=== PATIENT | male | born 1980 | race Caucasian/White ===

== ENCOUNTER 2023-09-02 08:41 | Observation (INO) | payer OTHER, SELFPAY ==
[2023-09-02] VITALS (13 sets, daily range): BP systolic 102–160; BP diastolic 66–113; PULSE 77–105; RESP 11–18; TEMP 36.3–36.9; O2SAT 95–100; BMI 29.6
--- NOTE | ~2023-09-02 | MR_ITS ---
MRI of the cervical spine Clinical History: Spinal stenosis, seizure Technique: Axial T2-weighted and gradient images, and sagittal T1-weighted, T2-weighted, and STIR marques ges were acquired. Following intravenous administration of 19 cc MultiHance gadolinium, T1-weighted f at-sat imaging was performed in the axial and sagittal planes. Findings: No acute fracture or subluxation of the cervical spine identified. There is anterior interb jose raul fusion from C5 to C6, with associated susceptibility artifact. There is posterior decompression a t C5 and C6 level. No suspicious bone marrow signal abnormality seen. At C2-C3, there is no disc bulge or herniation. No spinal canal stenosis, cord compression, or neural foraminal narrowing. At C3-C4, there is no significant disc bulge or herniation. No gaby spinal canal stenosis, cord comp ression, or neural foraminal narrowing. At C4-C5, there is minimal disc bulge with probable minimal canal stenosis but no gaby cord compress ion. Possible minimal left neural foraminal narrowing. Right neural foramen preserved. At C5-C6, there is susceptibility artifact and posterior decompression. No gaby canal stenosis or co rd compression. Neural foramina are probably preserved. At C6-C7, there is no disc bulge or herniation. No spinal canal stenosis, cord compression, or defini te neural foraminal narrowing. There is hyperintense signal centrally in the spinal cord at the C5-C6 level, possibly sequela of maria isabel or cord compression/myelomalacia. No abnormal postcontrast enhancement identified. There are postoper ative changes in the posterior paravertebral soft tissues at the C5-C6 level region. Impression: Hyperintense cord signal centrally at the C5-C6 level, likely sequela of prior cord compression/myelo malacia. Anterior and interbody fusion with posterior decompression from C5 to C6. Mild degenerative spondylosis otherwise, as above. Reviewed, dictated and finalized at location . CTION PREVENTIONIST Impression: Hyperintense cord signal centrally at the C5-C6 level, likely sequela of prior cord compression/myelomalacia. Anterior and interbody fusion with posterior decompression from C5 to C6. Mild degenerative spondylosis otherwise, as above.
--- NOTE | ~2023-09-02 | MR_ITS ---
MRI of the brain Clinical History: Seizure Technique: Axial and sagittal T1-weighted images were acquired. These were followed by axial T2-weigh russel, diffusion weighted, gradient, and FLAIR images. Coronal T1-weighted and T2-weighted images were performed. Following intravenous administration of 19 cc MultiHance gadolinium, T1-weighted fat-sat i maging was performed in the axial, coronal, and sagittal planes. Findings: No abnormal signal seen in the brain parenchyma. No acute infarct, intracranial hemorrhage, or mass lesion. Ventricles and subarachnoid spaces are unremarkable. Orbits are unremarkable. Paranasal sinuses and m astoid air cells are clear. Major intracranial flow voids are intact. Sagittal midline structures are intact. No definite evidence for mesial temporal sclerosis. No abnormal postcontrast enhancement identified. IMPRESSION: No significant abnormality seen. Reviewed, dictated and finalized at [facility]. RTISING EDITOR
--- NOTE | ~2023-09-02 | XR_ITS ---
EXAMINATION: XR chest 2V DATE: 09/02/2023 09:47 INDICATION: Seizure TECHNIQUE: frontal and lateral views of the chest were obtained. COMPARISON: None FINDINGS: Patient is rotated slightly towards the right on the frontal projection. There is mild elevation of t he left hemidiaphragm. No focal airspace opacities, pulmonary edema, pleural effusion or pneumothorax . The cardiomediastinal silhouette is normal. Lower cervical anterior spinal fusion with partially vi sualized plate and screw fixation. IMPRESSION: 1. Mild elevation of the left hemidiaphragm. No other acute cardiopulmonary disease. Reviewed, dictated and finalized at location A. CAL RECORDS SUPERVISOR IMPRESSION: 1. Mild elevation of the left hemidiaphragm. No other acute cardiopulmonary dis ease.
--- NOTE | ~2023-09-02 | CT_ITS ---
EXAMINATION: CT brain wo con INDICATION: Seizure COMPARISON: None TECHNIQUE: Standard unenhanced head CT. The dose-length product (DLP) was 605.33 mGy-cm. The mA was a djusted according to patient size. Iterative reconstruction technique was employed. FINDINGS: No intracranial hemorrhage, acute infarction, or abnormal mass lesion. The ventricles are n ormal. No abnormal mass effect or midline shift. The tsai-white matter differentiation is normal. The basal cisterns are patent. The orbits are normal. The paranasal sinuses, mastoids and calvarium are normal. IMPRESSION: 1. No acute intracranial abnormality. Reviewed, dictated and finalized at location B. TOLOGIST
--- NOTE | 2023-09-02 08:56 | ECG_ITS ---
Measurements Intervals [place] Rate: 91 P: 43 [place]: 164 QRS: -20 QRSD: 99 T: 52 QT: 345 QTc: 424 Interpretive Statements SINUS RHYTHM ST ELEVATIOIN IN DIFFUSE LEADS- PROBABLY EARLY REPOLARIZATION BORDERLINE ECG NO PREVIOUS ECG AVAILABLE FOR COMPARISON Electronically Signed On 09-02-2023 10:38:27 TESTING PROJECTS ADMINISTRATOR by Diego Hopson D.O.
[2023-09-02 09:24] LABS: Hematocrit 50.2 % (42.0-52.0); Hemoglobin 15.7 g/dL (14.0-18.0); Mean Corpuscular HGB Conc 31.3 g/dl (32-36); Mean Corpuscular Hemoglobin 29.4 pg (26-34); Mean Platelet Volume 10.3 fl (7.4-10.4); Platelet Count Result 265 k/mm3 (150-375); Red Blood Count 5.34 M/mm3 (4.6-6.20); Red Cell Distribution Width 12.1 % (11.5-14.5); White Blood Count 15.7 K/mm3 (4.5-10.0)
[2023-09-02] MEDS: levETIRAcetam 1000MG/NACL100ML 1,000 MG/100 ML BAG 400 MG IVPB ×2 (09:24→17:20)
[2023-09-02 09:39] LABS: Ethanol < 10 mg/dL (<10)
[2023-09-02 09:46] LABS: Albumin Level 4.8 g/dL (3.5-5.1); Alkaline Phosphatase 145 U/L (38-126); Anion Gap 24 mmol/L (8-16); Aspartate Amino Transferase 40 U/L (17-59); Bilirubin,Total 0.5 mg/dL (0.2-1.3); Blood Urea Nitrogen 15 mg/dL (9-20); Calcium 9.5 mg/dL (8.4-10.2); Carbon Dioxide 11 mmol/L (22-30); Chloride 101 mmol/L (98-107); Estimated CRCL calculation 86 ml/min; Estimated Glomerular Filt Rate > 60; Glucose 171 mg/dL (65-110); Potassium 4.6 mmol/L (3.4-5.0); Sodium 136 mmol/L (137-145)
[2023-09-02 10:02] LABS: Band Neutrophils Percent 9 % (0-6); Eosinophils Absolute Manual 0.31 K/mm3 (0.02-0.5); Eosinophils Percent Manual 2 % (0-4); Large Platelets Present; Lymphocytes Absolute Manual 5.02 K/mm3 (1.1-4.5); Lymphocytes Percent Manual 32 % (18-44); Monocytes Absolute Manual 0.47 K/mm3 (0.1-0.90); Monocytes Percent Manual 3 % (3-9); Neutrophils Absolute Manual 9.89 K/mm3 (1.3-6.7); Neutrophils Percent Manual 54 % (46-73); Platelet Estimate Adequate (Adequate); Total Cells Counted 100
[2023-09-02 10:03] LABS: Schistocytes None Seen (NORMAL)
[2023-09-02 10:23] LABS: Alanine Aminotransferase 42 U/L (6-50)
--- NOTE | 2023-09-02 10:46 | ED.GENADULT ---
HPI - General Adult General Chief complaint: Seizure Stated complaint: seizure x 10 minutes Time Seen by Provider: 09/02/23 08:45 History of Present Illness HPI narrative: Patient is a 43-year-old male who presents ER after having a seizure. Witnessed by in bed. Arms were flexed and its reported lasted 10 minutes. Patient has history of seizure disorder when he was a child but grew out of them and has not been on antiepileptics. Patient does have some known clonus in his extremities that occurs in the morning when he stretches. It is results of the spinal fusion he has had in the past. He has been seen by a neurologist at [facility] for the clonus. Patient reports he did use marijuana last night which is typical for him. No fevers or chills or sweats. She was initially postictal but is alert and oriented x3 here. After evaluation patient had a recurrent seizure and bit his tongue. He was briefly postictal. Related Data Home Medications Medication Instructions Recorded Confirmed baclofen 5 mg tablet 5 mg PO TID 09/02/23 09/02/23 buspirone 30 mg tablet 30 mg PO BID 09/02/23 09/02/23 calcium carbonate 500 mg calcium 500 mg PO BID 09/02/23 09/02/23 (1,250 mg) tablet cetirizine 10 mg tablet 10 mg PO DAILY 09/02/23 09/02/23 cholecalciferol (vitamin D3) 50 50 mcg PO DAILY 09/02/23 09/02/23 mcg (2,000 unit) capsule (Vitamin D3) desvenlafaxine succinate 50 mg 50 mg PO DAILY 09/02/23 09/02/23 tablet,extended release 24 hr dulaglutide 0.75 mg/0.5 mL 0.75 mg subcut WEEKLY 09/02/23 09/02/23 subcutaneous pen injector (Trulicity) gabapentin 300 mg capsule 300 mg PO TID 09/02/23 09/02/23 lamotrigine 25 mg tablet 50 mg PO DAILY 09/02/23 09/02/23 melatonin 10 mg tablet,extended 10 mg PO HS 09/02/23 09/02/23 release metformin 1,000 mg tablet 1,000 mg PO BID 09/02/23 09/02/23 Allergies Allergy/AdvReac Type Severity Reaction Status Date / Time No Known Allergies Allergy Verified 08/04/23 13:24 Review of Systems Review of Systems: All systems reviewed & are unremarkable except as noted in HPI and below Constitutional: Constitutional: Denies chills, Denies fatigue and Denies fever(s) ENT: Denies nasal congestion and Denies sore throat Cardiovascular: Cardiovascular: Denies chest pain, Denies rapid heart rate and Denies radiating jaw, neck or arm pain Respiratory: Respiratory: Denies cough and Denies dyspnea Gastrointestinal: Gastrointestinal: Denies abdominal pain, Denies nausea and Denies vomiting PMFSH Past Medical History Medical History (Updated 09/02/23 @ 17:44 by Everardo Torres MD) Cervical stenosis of spinal canal Depression Diabetes type 2, controlled Encounter for medication management GILL (generalized anxiety disorder) Inflammatory arthritis Seizure in childhood 5-6 y/o, had 1 grand mal and 2 additional. unclear when resolved. Surgical History Surgical History (Updated 09/02/23 @ 10:51 by Everardo Torres MD) H/O cervical spine surgery Social History Social History Smoking status: Former smoker Tobacco type: cigarettes Alcohol intake: current Drinks per week: 1 Substance use: current Substance use type: marijuana Lack of Transportation: No Lack of Food: Never True Current Housing: I Have Housing Concerned About Future Housing: No Difficulty Paying Gas/Electric Bills: No Difficulty Paying for Meds: No Currently Unemployed: No Education: Decline to Answer Difficulty w/ Childcare or Family Care: No Spiritual care concerns: Yes (orthodoxy) Exam Narrative: GENERAL: Well-appearing, well-nourished, and in no acute distress. HEAD: Normocephalic, atraumatic. EYES: PERRL and EOMI. contusion right eye ENT: Mucous membranes moist. Bleeding from right corner mouth. CHEST: Clear to auscultation. No respiratory distress. HEART: Regular rate and rhythm. Normal peripheral pulses. ABDOMEN: Soft, n
--- NOTE | 2023-09-02 12:14 | ADMGEN ---
This patient, Genaro Dominique, was admitted to 3 [facility] Surg Room 316-01. Patient/family oriented to hospital policies and general routines including ID bracelet, bed and alarms, visiting hours, pain management, procedures, bathroom and other care routines, personal items, smoking policy, room service/diet, and visiting hours. Information on how to activate the Rapid Response Team has been discussed. Patient/Family are encouraged to report perceived risks to care and to ask questions if they do not understand what they are told or what they should do.
[2023-09-02] MEDS: HYDROcodone/acetaminophen (*CRX) 5-325 MG TABLET 1 TAB PO (12:53)
--- NOTE | 2023-09-02 13:55 | PM.IMHP ---
H&P: HPI History of Present Illness Date/Time: 09/02/23 13:55 Chief Complaint: New Seizure-like Activity Narrative: 43 y/o M presents here with new seizure-like activity with PMH of DM2, juvenile seizures, cervical stenosis with subsequent surgery, inflammatory arthritis, GILL, depression, and ADHD. HPI provided by , patient remains somnolent. states that she was getting ready around 8:00 a.m. when she noticed that the patient seemed stiff and arms were flexed out. Initially believed flexion due to clonus. She attempted to help patient stretch out and really awaken arms and legs. This did not alleviate the flexion and patient became more sweaty/clammy. Then arms moved from flexion outward to drawn up into his chest and then he began to shake. called 911. Initial seizure lasted approximately 10 minutes and broke without intervention. When EMS arrived patient was agitated and it took multiple emergency route service manager now to get him onto the transport stretcher. While patient was in route to the hospital with EMS he had a 2nd seizure. Limited information about length of time and if interventions were provided. reports that patient arrived to the hospital with bruise over his right eye which was not present prior to transport. After arrival to the emergency department patient returned to baseline. While in the ED he had a 3rd seizure with some trauma to his tongue. 1 g of Keppra given. Patient remains somnolent after 3rd seizure but is A&Ox4. Current complaint is frontal headache. Patient has history of juvenile seizures, 1st occurred when he was 7 to 8 years old. Initial seizure was a grand mal seizure, 2 more shortly thereafter. Medicated for an unknown amount of time and medication name unknown. Patient was taken off of seizure medications and has not had issues since. States he grew out of them. Only other history is chronic clonus in all extremities. reports that this is been present since before his cervical spine surgery to correct spinal stenosis in April, however after surgery was done the clonus worsened. Following with surgeon, last seen in June. Endorses marijuana use regularly/daily. No other recreational drugs or daily alcohol use, reports that he only drinks occasionally. Review of Systems Review of Systems: All systems reviewed & are unremarkable except as noted in HPI and below [facility] Past Medical History Medical History ADHD Cervical stenosis of spinal canal Depression Diabetes type 2, controlled GILL (generalized anxiety disorder) Inflammatory arthritis Seizure in childhood 5-6 y/o, had 1 grand mal and 2 additional. unclear when resolved. Surgical History Surgical History H/O cervical spine surgery Social History Social History Social History: Currently lives at home with his . Surrogate decision maker: Radha Hernandez, spouse. Code status: Full code. Smoking status: Former smoker Tobacco type: cigarettes Alcohol intake: current Drinks per week: 1 Substance use: current Substance use type: marijuana Lack of Transportation: No Lack of Food: Never True Current Housing: I Have Housing Concerned About Future Housing: No Difficulty Paying Gas/Electric Bills: No Difficulty Paying for Meds: No Currently Unemployed: No Education: Decline to Answer Difficulty w/ Childcare or Family Care: No Spiritual care concerns: Yes (spiritism) Meds Home Medications and Allergies Home Medications Medication Instructions Recorded Confirmed Type baclofen 5 mg tablet 5 mg PO TID 09/02/23 09/02/23 History buspirone 30 mg tablet 30 mg PO BID 09/02/23 09/02/23 History calcium carbonate 500 mg calcium 500 mg PO BID 09/02/23 09/02/23 History (1,250 mg) tablet cetirizine 10
[2023-09-02 14:41] LABS: Appearance Urine Clear (Clear); Bilirubin Urine Negative (Negative); Blood Urine Negative (Negative); Color Urine Yellow (Yellow); Glucose Urine UA Trace mg/dL (Negative); Ketones Urine Trace mg/dL (Negative); Leukocyte Esterase Ur Negative LEU/UL (Negative); Nitrate Urine Negative (Negative); Protein Urine Negative (Negative); Specific Grav Ur 1.015 (1.001-1.035); Urobilinogen Urine 0.2 mg/dL (<2.0); pH Urine 6.5 (5.0-9.0)
[2023-09-02 14:47] LABS: Add Urine Microscopic? NO
[2023-09-02 14:56] LABS: Amphetamine Screen Urine Negative (Negative); Barbiturate Screen Urine Negative (Negative); Benzodiazepines Screen Urine Negative (Negative); Cannabinoid Screen Urine Positive (Negative); Cocaine Screen Urine Negative (Negative); Methadone Screen Urine Negative (Negative); Opiate Screen Urine Negative (Negative); Phencyclidine Screen Urine Negative (Negative)
[2023-09-02 16:56] LABS: Free T4 Free Thyroxine Reflex 1.04 ng/dL (0.78-2.19)
[2023-09-02] MEDS: LACTATED RINGERS 1,000 ML 100 ML IV CONT (17:19)
[2023-09-02 17:25] LABS: Glucose Point of Care 85 mg/dl (65-105)
[2023-09-02] MEDS: CALCIUM CARBONATE (OSCAL) 500 MG TABLET PO (17:26)
[2023-09-02] MEDS: busPIRone HCL 10 MG TABLET 30 MG PO (17:26)
[2023-09-02] MEDS: GABAPENTIN 300 MG CAPSULE PO (17:26)
[2023-09-02] MEDS: BACLOFEN 5 MG TABLET PO (17:26)
[2023-09-02] MEDS: ONDANSETRON INJ 4 MG/2 ML VIAL IV PUSH (17:35)
[2023-09-02 17:56] LABS: Total Triiodothyronine (T3) 1.42 NG/ML (0.97-1.69)
[2023-09-02 21:01] LABS: Glucose Point of Care 89 mg/dl (65-105)
[2023-09-03] VITALS (10 sets, daily range): BP systolic 114–121; BP diastolic 71–82; PULSE 61–88; RESP 16–20; TEMP 36.1–36.8; O2SAT 96–99
[2023-09-03 05:59] LABS: Hematocrit 47.4 % (42.0-52.0); Hemoglobin 15.7 g/dL (14.0-18.0); Mean Corpuscular HGB Conc 33.1 g/dl (32-36); Mean Corpuscular Hemoglobin 29.7 pg (26-34); Mean Corpuscular Volume 89.6 fl (80-100); Mean Platelet Volume 10.4 fl (7.4-10.4); Platelet Count Result 207 k/mm3 (150-375); Red Blood Count 5.29 M/mm3 (4.6-6.20)
[2023-09-03 06:15] LABS: Anion Gap 9 mmol/L (8-16); Blood Urea Nitrogen 13 mg/dL (9-20); Calcium 10.2 mg/dL (8.4-10.2); Carbon Dioxide 29 mmol/L (22-30); Chloride 99 mmol/L (98-107); Estimated CRCL calculation 86 ml/min; Estimated Glomerular Filt Rate > 60; Glucose 85 mg/dL (65-110); Potassium 4.1 mmol/L (3.4-5.0); Sodium 137 mmol/L (137-145)
[2023-09-03 06:20] LABS: Hemoglobin A1C 5.5 % (<5.7)
[2023-09-03 07:47] LABS: Glucose Point of Care 93 mg/dl (65-105)
[2023-09-03] MEDS: DESVENLAFAXINE SUCCINATE 50 MG TAB.ER.24H PO (09:16)
[2023-09-03] MEDS: busPIRone HCL 10 MG TABLET 30 MG PO ×2 (09:16→16:47)
[2023-09-03] MEDS: GABAPENTIN 300 MG CAPSULE PO ×3 (09:17→16:47)
[2023-09-03] MEDS: CALCIUM CARBONATE (OSCAL) 500 MG TABLET PO ×2 (09:17→16:47)
[2023-09-03] MEDS: levETIRAcetam 500 MG TABLET PO ×2 (09:17→22:05)
[2023-09-03] MEDS: BACLOFEN 5 MG TABLET PO ×3 (09:17→16:47)
[2023-09-03] MEDS: CHOLECALCIFEROL 1,000 UNITS TABLET 2000 UNITS PO (09:17)
[2023-09-03] MEDS: lamoTRIgine 50 MG TABLET PO (09:17)
[2023-09-03 11:33] LABS: Glucose Point of Care 128 mg/dl (65-105)
--- NOTE | 2023-09-03 11:50 | WPDNEURCNPN ---
Assessment and Plan Assessment and plan (1) Seizure-like activity: Code(s): R56.9 - Unspecified convulsions Status: Acute (2) Epilepsy: Code(s): G40.909 - Epilepsy, unspecified, not intractable, without status epilepticus Status: Acute Plan Mr. Dominique is a 43 year old male with a history of cervical stenosis and remote history of seizures presenting due to several seizures within one day. UDS was positive for marijuana, which patient has been smoking for quite some time. Seizures seem to be unprovoked. MRI brain was normal. EEG is pending. Given seizures during childhood, and now seemingly unprovoked seizures, we discussed that he should be on maintenance anti seizure medication. We also discussed no driving or operating heavy machinery until he is seizure free for at least six months. Reviewed seizure precautions. Continue Keppra 500mg BID. Will follow-up as outpatient. Consult date: 09/03/23 Reason for consult: Seizure HPI: Genaro Dominique is a 43 year old male with cervical stenosis s/p fusion, childhood seizures, ADHD, anxiety, depression, DM presenting due to breakthrough seizures. Patient had witnessed seizure on day of admission that was described as tonic clonic movements of the extremities, lasting about 10 minutes and self-aborted followed by post-ictal state. EMS was called, patient had another seizure en route. He arrived to the ED post-ictal but had a third seizure while in the ED. He was given 1 gram of Keppra and started on maintenance Keppra 500mg BID. Since then he has not had any additional seizures but has been quite tired. feels that his clonus has gotten worse since the seizure. CT head was negative for acute process. MRI brain was normal. UDS was positive for marijuana. Patient had 2-3 seizures in childhood. It is unknown if there was associated fever or if he ever took anti-seizure medication. Neither patient nor his mother remember. There is no known family history of seizures. 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 He had fusion/decompression of C-spine in April 2023. Review of Systems Constitutional: Constitutional: Denies chills, Denies fever(s) and Denies weight loss Eyes: Eyes: Denies diplopia and Denies loss of vision ENT: Denies dizziness, Denies hearing loss and Denies tinnitus Cardiovascular: Cardiovascular: Denies chest pain, Denies syncope and Denies dyspnea Respiratory: Respiratory: Denies cough, Denies dyspnea and Denies wheezing Gastrointestinal: Gastrointestinal: Denies abdominal pain, Denies change in bowel habits and Denies vomiting Genitourinary: Genitourinary: Denies urinary incontinence Musculoskeletal: Musculoskeletal: Reports back pain, Denies arthralgias and Denies joint swelling Integumentary/Breasts: Skin/Breast: Denies new lesions and Denies rash Neurologic: Reports as per HPI, Denies dizziness, Denies syncope and Denies loss of vision Psychiatric: Psychiatric: Denies anxiety and Denies depression Endocrine: Endocrine: Denies cold intolerance and Denies heat intolerance Hematologic/Lymphatic: Hematologic/Lymphatic: Denies easy bleeding and Denies easy bruising Allergic/Immunologic: Allergic/Immunologic: Denies no additional allergic/immunologic complaints and Denies wheezing PMFSH Past Medical History Medical History ADHD Cervical stenosis of spinal canal Depression Diabetes type 2, controlled GILL (generalized anxiety disorder) Inflammatory arthritis Seizure in childhood 5-6 y/o, had 1 grand mal and 2 additional. unclear when resolved. Surgical History Surgical History H/O cervical spine surgery Social History Social History Social History: Currently lives at home with his . Surrogate decision maker: Radha David, spouse. Code status: Full code. Smoking status: Former
--- NOTE | 2023-09-03 13:48 | PM.IMPN ---
Progress Note: A&P Assessment and Plan (1) Seizure-like activity: Code(s): R56.9 - Unspecified convulsions Status: Acute (2) Diabetes type 2, controlled: Qualifiers: Diabetes mellitus complication status: without complication Diabetes mellitus detention insulin use: without service greeter use Qualified Code(s): E11.9 - Type 2 diabetes mellitus without complications Code(s): E11.9 - Type 2 diabetes mellitus without complications Status: Acute (3) Cervical stenosis of spinal canal: Code(s): M48.02 - Spinal stenosis, cervical region Status: Acute Plan Problem List 1. seizure-like activity Keppra loading dose of 2G IVPB, continue Keppra 500 mg PO BID seizure precautions MRI of brain/brainstem - negative for acute changes MRI cervical spine - showed some possible sequelae from cervical surgery EEG - pending report UA: trace glucose, trace ketones UDS - marijuana TSH 5.670, T4 WNL no new medication recently, no regular/heavy ETOH use no s/s of infection or lab/imaging findings to support same consult neurology - awaiting further recommendation/evaluation 1 mg of Ativan IV prn for seizure-like activity lamictal level d/c IVF mild associated QUIROS - TYL prn 2. DM2 Hypoglycemia protocol POC blood glucose ACHS home medication held - metformin correct regimen ordered - low dose TIDWM and HS A1C ordered dexcom in place 3. cervical stenosis of spinal canal continue home baclofen, gabapentin cervical MRI showed Hyperintense cord signal centrally at the C5-C6 level, likely sequela of prior cord compression/myelomalacia. Anterior and interbody fusion with posterior decompression from C5 to C6. Mild degenerative spondylosis otherwise, as above. Home Meds/Chronic Conditions - GILL/Depression: continue home buspar, pristiq, - supplements: continue calcium, vitamin D3, and melatonin Diet: heart healthy GI Prophylaxis: not indicated DVT Prophylaxis: SCDs, Lines: pIV Code Status: Full Code Subjective Date/time seen: 09/03/23 13:48 Interval history: Patient is a 43 y/o male admitted with new seizure-like activity with PMH of DM2, juvenile seizures, cervical stenosis with subsequent surgery, inflammatory arthritis, GILL, depression, and ADHD. He is post 3 tonic-like seizures yesterday. His night here was uneventful. He is sitting up in bed with at bedside. We reviewed his medications, any changes in his daily life, dosages or recreational habits. The only thing the can think of is that they moved into an older home a few months ago and the carpets were cleaned a few days prior to this starting. She reports his blood sugars have been tightly controlled at home, with the exception of a few temporary lows but not going below 75. He is not complaining of any headache this morning, n/v or changes overnight. Awaiting neurology recommendations for evaluation. Review of Systems Review of Systems: All systems reviewed & are unremarkable except as noted in HPI and below Exam Const: General: comfortable and no acute distress HENMT: Mouth: Yes dry mucous membranes Other: Trauma to right lateral tongue, no active bleeding. Eyes: General: appearance normal, both eyes and all related structures Sclera: sclerae normal Pupils: Equal, round and reactive pupils present Other: 3-4 mm bilaterally, no nystagmus, no abnormalities in cardinal directions. Resp: Effort & Inspection: normal respiratory effort Auscultation: clear to auscultation bilaterally Cardio: Rate: regular rate Rhythm: regular rhythm Other: S1-S2 present without murmur, rub, ectopy GI: Auscultation: normal bowel sounds Skin: General skin exam: normal color and no rashes or lesions noted Wounds: no wounds Other: Small area of ecchymosis to right eye/right eyebrow with mild underlying swelling. Neuro: General: deep tendon reflexes 2+ bilaterally Cranial nerves: Yes Eq
--- NOTE | 2023-09-03 13:48 | P.PNIM_ITS ---
Progress Note: A&P Assessment and Plan (1) Seizure-like activity: Code(s): R56.9 - Unspecified convulsions Status: Acute (2) Diabetes type 2, controlled: Qualifiers: Diabetes mellitus complication status: without complication Diabetes mellitus fdc insulin use: without terminal superintendent use Qualified Code(s): E11.9 - Type 2 diabetes mellitus without complications Code(s): E11.9 - Type 2 diabetes mellitus without complications Status: Acute (3) Cervical stenosis of spinal canal: Code(s): M48.02 - Spinal stenosis, cervical region Status: Acute Plan Problem List 1. seizure-like activity * Keppra loading dose of 2G IVPB, continue Keppra 500 mg PO BID * seizure precautions * MRI of brain/brainstem - negative for acute changes * MRI cervical spine - showed some possible sequelae from cervical surgery * EEG - pending report * UA: trace glucose, trace ketones * UDS - marijuana * TSH 5.670, T4 WNL * no new medication recently, no regular/heavy ETOH use * no s/s of infection or lab/imaging findings to support same * consult neurology - awaiting further recommendation/evaluation * 1 mg of Ativan IV prn for seizure-like activity * lamictal level * d/c IVF * mild associated QUIROS - TYL prn 2. DM2 * Hypoglycemia protocol * POC blood glucose ACHS * home medication held - metformin * correct regimen ordered - low dose TIDWM and HS * A1C ordered * dexcom in place 3. cervical stenosis of spinal canal * continue home baclofen, gabapentin * cervical MRI showed Hyperintense cord signal centrally at the C5-C6 level, likely sequela of prior cord compression/myelomalacia. Anterior and interbody fusion with posterior decompression from C5 to C6. Mild degenerative spondylosis otherwise, as above. Home Meds/Chronic Conditions - GILL/Depression: continue home buspar, pristiq, - supplements: continue calcium, vitamin D3, and melatonin Diet: heart healthy GI Prophylaxis: not indicated DVT Prophylaxis: SCDs, Lines: pIV Code Status: Full Code Subjective Date/time seen: 09/03/23 13:48 Interval history: Patient is a 43 y/o male admitted with new seizure-like activity with PMH of DM2, juvenile seizures, cervical stenosis with subsequent surgery, inflammatory arthritis, GILL, depression, and ADHD. He is post 3 tonic-like seizures yesterday. His night here was uneventful. He is sitting up in bed with at bedside. We reviewed his medications, any changes in his daily life, dosages or recreational habits. The only thing the can think of is that they moved into an older home a few months ago and the carpets were cleaned a few days prior to this starting. She reports his blood sugars have been tightly controlled at home, with the exception of a few temporary lows but not going below 75. He is not complaining of any headache this morning, n/v or changes overnight. Awaiting neurology recommendations for evaluation. Review of Systems Review of Systems: All systems reviewed & are unremarkable except as noted in HPI and below Exam Const: General: comfortable and no acute distress HENMT: Mouth: Yes dry mucous membranes Other: Trauma to right lateral tongue, no active bleeding. Eyes: General: appearance normal, both eyes and all related structures Sclera: sclerae normal Pupils: Equal, round and reactive pupils present Other: 3-4 mm bilaterally, no nystagmus, no abn ormalities in cardinal directions.
[2023-09-03 16:43] LABS: Glucose Point of Care 100 mg/dl (65-105)
[2023-09-03 21:02] LABS: Glucose Point of Care 118 mg/dl (65-105)
[2023-09-03] MEDS: MELATONIN 5 MG TABLET 10 MG PO (22:05)
[2023-09-04] VITALS: PULSE 97
[2023-09-04 04:00] VITALS: PULSE 84
[2023-09-04 07:21] LABS: Hemoglobin 16.6 g/dL (14.0-18.0); Mean Corpuscular HGB Conc 33.9 g/dl (32-36); Mean Corpuscular Hemoglobin 29.8 pg (26-34); Mean Platelet Volume 9.8 fl (7.4-10.4); Platelet Count Result 230 k/mm3 (150-375); Red Blood Count 5.57 M/mm3 (4.6-6.20); Red Cell Distribution Width 11.9 % (11.5-14.5); White Blood Count 9.8 K/mm3 (4.5-10.0)
[2023-09-04 07:31] LABS: Anion Gap 13 mmol/L (8-16); Blood Urea Nitrogen 15 mg/dL (9-20); Calcium 10.3 mg/dL (8.4-10.2); Carbon Dioxide 26 mmol/L (22-30); Chloride 99 mmol/L (98-107); Estimated CRCL calculation 86 ml/min; Estimated Glomerular Filt Rate > 60; Glucose 136 mg/dL (65-110); Potassium 4.1 mmol/L (3.4-5.0); Sodium 138 mmol/L (137-145)
[2023-09-04 08:00] VITALS: PULSE 82
[2023-09-04 08:42] LABS: Glucose Point of Care 134 mg/dl (65-105)
[2023-09-04] MEDS: CALCIUM CARBONATE (OSCAL) 500 MG TABLET PO (09:45)
[2023-09-04] MEDS: GABAPENTIN 300 MG CAPSULE PO (09:45)
[2023-09-04] MEDS: CHOLECALCIFEROL 1,000 UNITS TABLET 2000 UNITS PO (09:45)
[2023-09-04] MEDS: busPIRone HCL 10 MG TABLET 30 MG PO (09:45)
[2023-09-04] MEDS: DESVENLAFAXINE SUCCINATE 50 MG TAB.ER.24H PO (09:45)
[2023-09-04] MEDS: levETIRAcetam 500 MG TABLET PO (09:45)
[2023-09-04] MEDS: BACLOFEN 5 MG TABLET PO ×2 (09:46→12:52)
[2023-09-04] MEDS: lamoTRIgine 50 MG TABLET PO (09:46)
--- NOTE | 2023-09-04 10:31 | WPDNEUROLOGY ---
Neurology EEG Report General Information Date of Study: 09/03/23 TEST Routine EEG DIAGNOSIS Seizures CONDITION OF RECORDING Awake, drowsy, asleep EEG NUMBER [id number] CLINICAL HISTORY Patient has a history of seizures during childhood. Remained seizure free as an adult until a few days ago -- had several convulsive seizures which brought him to the hospital. EEG DESCRIPTION 8During the awake state with eyes closed the background consists of 8-9 Hz posterior dominant rhythm which attenuates appropriately with eye opening. The recording is continuous. There is a well developed anterior-posterior gradient. No significant asymmetries of background activities are noted. With drowsiness there is waxing and waning of the dominant rhythm with eventual replacement by a mixture of beta, alpha, and theta activity. As the patient enters stage II sleep, symmetrical spindles and K-complexes are present. Arousal is unremarkable. There are no epileptiform discharges or seizures during this recording. Hyperventilation and photic stimulation were not performed. IMPRESSION This is a normal routine EEG recorded in awake and asleep states. There are no electrographic seizures identified, nor are there any epileptiform discharges. Please note that a normal EEG cannot exclude a seizure disorder. Clinical correlation is recommended.
[2023-09-04 12:00] VITALS: PULSE 87
[2023-09-04 12:14] LABS: Glucose Point of Care 126 mg/dl (65-105)
[2023-09-04] MEDS: ONDANSETRON INJ 4 MG/2 ML VIAL IV PUSH (12:53)
[2023-09-04] MEDS: GABAPENTIN 300 MG CAPSULE 900 MG PO (12:53)
--- NOTE | 2023-09-04 13:38 | PC.NURSE ---
1338 d/c meds not complete, made call to force variation equipment tender Dr Khan to inform her.
--- NOTE | 2023-09-04 13:55 | PM.DS ---
DS: Admitting Diagnosis Discharge Date 09/04/23 Admitting Diagnosis seizure-like activity DS: Discharge Diagnosis Discharge Diagnosis (1) Seizure-like activity: Code(s): R56.9 - Unspecified convulsions Status: Acute (2) Diabetes type 2, controlled: Qualifiers: Diabetes mellitus complication status: without complication Diabetes mellitus terminal make up operator insulin use: without long-term use Qualified Code(s): E11.9 - Type 2 diabetes mellitus without complications Code(s): E11.9 - Type 2 diabetes mellitus without complications Status: Acute (3) Cervical stenosis of spinal canal: Code(s): M48.02 - Spinal stenosis, cervical region Status: Acute Plan Problem List 1. seizure-like activity continue Keppra 500 mg PO BID seizure precautions at home discussed MRI of brain/brainstem - negative for acute changes MRI cervical spine - showed some possible sequelae from cervical surgery EEG - WNL UA: trace glucose, trace ketones UDS - marijuana TSH 5.670, T4 WNL Follow up outpatient with neurology 2. DM2 continue home metformin 3. cervical stenosis of spinal canal continue home baclofen, gabapentin cervical MRI showed Hyperintense cord signal centrally at the C5-C6 level, likely sequela of prior cord compression/myelomalacia. Anterior and interbody fusion with posterior decompression from C5 to C6. Mild degenerative spondylosis otherwise, as above. continue to follow with surgeon DS: Summary Hospital Course Hospital Course: Patient is a 43 y/o male admitted with new seizure-like activity with PMH of DM2, juvenile seizures, cervical stenosis with subsequent surgery, inflammatory arthritis, GILL, depression, and ADHD. He is post 3 tonic-like seizures Thursday with no new seizures while inpatient. He has no complaints this morning, no changes in his condition and is stable for discharge. MRI of brain/brainstem - negative for acute changes. MRI cervical spine - showed some possible sequelae from cervical surgery. EEG was normal. Neuro cleared for outpatient follow up. He will continue Keppra 500 mg BID. Discussed seizure precautions at home. Stable for d/c home today with his . Status at Discharge Functional status at discharge: independent ambulation Overall status at discharge: patient is back to baseline Time Spent with Patient Time attestation: Total time spent providing and/or coordinating discharge services: Exam Const: General: comfortable and no acute distress HENMT: Mouth: Yes dry mucous membranes Other: Trauma to right lateral tongue, no active bleeding. Eyes: General: appearance normal, both eyes and all related structures Sclera: sclerae normal Pupils: Equal, round and reactive pupils present Other: 3-4 mm bilaterally, no nystagmus, no abnormalities in cardinal directions. Resp: Effort & Inspection: normal respiratory effort Auscultation: clear to auscultation bilaterally Cardio: Rate: regular rate Rhythm: regular rhythm Other: S1-S2 present without murmur, rub, ectopy GI: Auscultation: normal bowel sounds Skin: General skin exam: normal color and no rashes or lesions noted Wounds: no wounds Other: Small area of ecchymosis to right eye/right eyebrow with mild underlying swelling. Neuro: General: deep tendon reflexes 2+ bilaterally Cranial nerves: Yes Equal, round and reactive pupils present Speech: normal speech Sensory Exam: normal sensation Other: +4/5 in BUE. +5 in BLE. no changes in sensation. somnolent. PERRLA: 2-3mm w/o nystagmus. Extrem: General: normal to inspection Psych: Mental Status: mental status grossly normal DS: Data Data Completed and Pending Labs on day of discharge: Labs from last 24 hours 09/04/23 09/04/23 09/04/23 12:09 08:29 07:04 WBC 9.8 RBC 5.57 Hgb 16.6 Hct 49.0 MCV 88.0 MCH 29.8 MCHC 33.9 RDW 11.9 Plt Count 230 MPV 9.8 Sodium
[2023-09-06 07:43] LABS: Lamotrigine Lamictal <0.5 mcg/mL (2.5-15.0)
== END 2023-09-04 14:35 | disposition home or self-care (01) ==
LOC: ANHED 09:45 → ANH3MEDSUR 12:03
PROVIDERS: Nurse Practitioner; Student in an Organized Health Care Education/Training Program; Admitting Provider Internal Medicine; Emergency Provider Emergency Medicine; PCP Family Medicine; Visit Provider Internal Medicine
DX: R56.9 Unspecified convulsions (principal); M48.02 Spinal stenosis, cervical region; F32.A Depression, unspecified; F41.1 Generalized anxiety disorder; M06.4 Inflammatory polyarthropathy; J98.6 Disorders of diaphragm; E11.9 Type 2 diabetes mellitus without complications; Z98.890 Other specified postprocedural states; F90.9 Attention-deficit hyperactivity disorder, unspecified type; Z87.891 Personal history of nicotine dependence; F12.90 Cannabis use, unspecified, uncomplicated; Z79.84 Long term (current) use of oral hypoglycemic drugs; Z79.85 Long-term (current) use of injectable non-insulin antidiabetic drugs; Z79.899 Other long term (current) drug therapy
CPT/HCPCS: 36415; 70450; 70553; 71046; 72156; 80048; 80053; 80175; 80307; 81003; 82948; 83036; 84439; 84443; 84480; 85025; 85027; 93005; 95816; 96374; 96375; 96376; 99285; A9270; A9577; G0378; J1953; J2405; J7120